=== PATIENT | female | born 1975 | race Caucasian/White ===

== ENCOUNTER 2020-02-17 09:36 | Emergency (ER) | payer OTHER, SELFPAY ==
[2020-02-17 09:51] VITALS: BP 158/94; PULSE 115; RESP 16; TEMP 37.2; O2SAT 99
--- NOTE | 2020-02-17 10:29 | ED.GENADULT ---
HPI - General Adult General Chief complaint: Extremity Injury, Upper Stated complaint: left shoulder pain/radiating to elbow and hand Time Seen by Provider: 02/17/20 10:29 Source: patient and RN notes reviewed Mode of arrival: ambulatory Limitations: no limitations History of Present Illness HPI narrative: 44 year old female who presents to [facility] care with complaints of left posterior shoulder and scapular pain for the past 3 days, Patient states that she knows of no injury to her shoulder or upper back. She states that she had a massage yesterday and now pain is radiating down her left arm into her 4-5th fingers and they feel tingly. Patient states that she also has pain when she turns her neck to the left. Patient has full ROM of left arm and shoulder, circulation intact with strong pulses, hand is warm and pink. Patient states that she has been taking Tylenol for her discomfort. MD complaint: posterior left shoulder and scapular pain Onset (ago): day(s) (3) Location: left and upper extremity (posterior shoulder and scapula) Radiation: distal Severity: severe Severity scale (1-10): 9 Quality: aching and dull Pain Consistency: constant Relieving factors: none Exacerbating factors: movement Associated symptoms: denies other symptoms Treatments prior to arrival: other (Tylenol) Related Data Allergies Allergy/AdvReac Type Severity Reaction Status Date / Time Sulfa (Sulfonamide Allergy Hives Verified 02/17/20 10:08 Antibiotics) Review of Systems Review of Systems: Narrative: CONSTITUTIONAL: Denies fever, chills, or sweats. EYES: Denies visual changes, redness, or discharge. ENT: Denies rhinorrhea, congestion, sore throat, or otalgia. CARDIOVASCULAR: Denies chest pain, palpitations, or edema. RESPIRATORY: Denies cough or dyspnea. GASTROINTESTINAL: Denies abdominal pain, nausea, vomiting, or diarrhea. GENITOURINARY: Denies dysuria or hematuria. SKIN: Denies rash or itching. MUSCULOSKELETAL: Denies back pain,positive for complaints of left posterior shoulder and scapular pain, or myalgia, pain to left neck on movement. NEUROLOGIC: Denies headache, numbness, or weakness. PSYCHIATRIC: Denies anxiety or depression. All systems reviewed & are unremarkable except as noted in HPI and below PMFSH Past Medical History Medical History (Updated 02/18/20 @ 19:40 by Ann Marie Forrest NP) Obesity Surgical History Surgical History (Updated 02/18/20 @ 19:40 by Ann Marie Forrest NP) Hx of tonsillectomy Social History Social History (Updated 02/18/20 @ 19:41 by Ann Marie Forrest NP) Smoking status: Never smoker Alcohol intake: unknown Substance use: unknown Living arrangements: with family Gender identity (if verbalized by the patient): Female Comments At time of signature, agree with nursing past medical, surgical, social and family history. There is no relevant family history pertinent to the presenting complaint Exam Narrative: Exam Narrative: GENERAL: Well-appearing, well-nourished, obese,and in no acute distress. HEAD: Normocephalic, atraumatic. EYES: PERRLA and EOMI. ENT: Nares clear, no rhinorrhea or epistaxis. Mucous membranes moist. NECK: Supple. pain to left neck when turns head left, no lymphadenopathy CHEST: Clear to auscultation. No respiratory distress.SAO2 99% on room air HEART: Regular rate and rhythm. No murmur heard. Normal peripheral pulses. ABDOMEN: Soft, nontender, nondistended, normal active bowel sounds. EXTREMITIES: Normal range of motion. No edema.pain states to posterior left shoulder and left scapular area with reported radiation to 4-5th finger left hand today with tingly sensation, Noted full ROM of left shoulder with point of tenderness noted to posterior left shoulder over scapular area.Circulation intact with strong pulses to left arm. SKIN: Warm, dry, no rash. NEURO: No focal deficits. Alert and oriented x3. Course Vital Signs Vital signs: Vital Signs Temperature 37.2 C 10/3
== END 2020-02-17 11:02 | disposition home or self-care (01) ==
PROVIDERS: Emergency Provider Registered Nurse
DX: M25.512 Pain in left shoulder (principal); E66.9 Obesity, unspecified
CPT/HCPCS: 99213; G0463